=== PATIENT | male | born 1955 | race Caucasian/White ===

== ENCOUNTER 2017-01-22 22:42 | Inpatient (IN) | payer MEDICAID ==
[~2017-01-22] VITALS: Ht 167.6 cm; Wt 80.3 kg
[2017-01-22 23:09] VITALS: BP 150/111
--- NOTE | 2017-01-22 23:52 | NUR ---
BIB WHEELCHAIR TO ER BED 6
--- NOTE | 2017-01-22 23:57 | NUR ---
PT MOVED TO ER BED 6-PRE ER MD REQUEST
--- NOTE | 2017-01-23 | NUR ---
PATIENT IS A 61 Y/O MALE WHO PRESENTS TO THE ED C/O URINARY BURNING. PT STATES, "MY URINE HAS BEEN BURNING RECENTLY WHEN I TRY TO PEE." PT REPORTS 5/10 BURNING URINARY PAIN THAT DOES NOT RADIATE. PT DENIES CP, SOB, N/V/D. PT AAOX4, RR EVEN/UNLABORED. PT REPOSITIONED FOR COMFORT, BED IN LOWEST POSITION. ER MD HAGER SECIST NOTIFIED. WILL CONTINUE TO MONITOR.
[2017-01-23 00:03] LABS: APPEARANCE,URINE CLOUDY (CLEAR); BILIRUBIN,URINE NEGATIVE (NEGATIVE); BLOOD, URINE 3+ (NEGATIVE); COLOR,URINE YELLOW (YELLOW); LEUKOCYTE ESTERASE ,URINE 1+ (NEGATIVE); NITRITE, URINE POSITIVE (NEGATIVE); PH,URINE 5.5 (5.0-9.0); UGLUCOSE NEGATIVE (NEGATIVE)
[2017-01-23 00:05] LABS: MEAN CORPUSCULAR HEMOGLOBIN 29 pg (27-31)
[2017-01-23 00:08] LABS: HEMATOCRIT 44.3 % (36-52); MEAN CORPUSCULAR HGB CONC 34 g/dL (33-37); MEAN CORPUSCULAR VOLUME 84 fL (80-94); PLATELET COUNT (AUTO) 315 K/uL (140-450); RED BLOOD CELL COUNT(AUTO) 5.27 MIL/uL (4.20-6.10); RED CELL DISTRIBUTION WIDTH 13.8 % (11.6-13.7); WHITE BLOOD COUNT (AUTO) 25.5 K/uL (4.8-10.8)
[2017-01-23] MEDS ORDERED: NACL 0.9% 2,500 ML IV ONE (00:10)
[2017-01-23 00:14] LABS: RBC,URINE 11-20 (MOD) /HPF (0-5); WBC,URINE TOO MANY TO COUNT /HPF (0-5)
[2017-01-23 00:20] LABS: EOSINOPHILS % (MANUAL) 1 % (0-4); LYMPHOCYTES % (MANUAL) 9 % (20-46); MONOCYTES % (MANUAL) 3 % (5-12)
[2017-01-23 00:24] LABS: ALBUMIN 2.7 g/dL (3.4-5.0); ANION GAP 13.6 (8-16); CARBON DIOXIDE 26.5 mmol/L (21-32); POTASSIUM 4.1 mmol/L (3.5-5.1); TOTAL BILIRUBIN 1.6 mg/dL (0.0-1.0)
[2017-01-23] MEDS ORDERED: cefTRIAXone 1,000 MG VIAL ONE (01:05)
--- NOTE | 2017-01-23 01:27 | NUR ---
CALLED LAB ETA FOR BLOOD C&S 5MINS
[2017-01-23] MEDS ORDERED: HYDROcodone/APAP 7.5/325 MG 1 TAB PO PRN (02:45)
[2017-01-23] MEDS ORDERED: ONDANSETRON 4 MG/2 ML VIAL IVP PRN (02:45)
[2017-01-23] MEDS: ACETAMINOPHEN 325 MG TAB PO PRN ×3 (03:11→18:14)
[2017-01-23 03:30] VITALS: BP 97/50
--- NOTE | 2017-01-23 03:30 | NUR ---
Patient will be admitted to care of DR. NOWAK. Admited to TELE. Will go to room 105A. Belongings list completed. Report to CASPER LOPEZ.
--- NOTE | 2017-01-23 03:30 | NUR ---
RECEIVED PT FROM ER VIA [facility] SPEAKER AAOX4 AMBULATES WITH ASSKENYT ON IV ON RT AC NOT PATENT A NEW IV WILL STARTED; ON TELEMETRY SR PT HAS FEVER 102 TYLENOL WAS GIVEN IN ER COOL MEASURES APPLY PT IS ORIENTED TO THE FLOOR CALL LIGHT WITHIN REACH
[2017-01-23] MEDS: NACL 0.9% 1,000 ML IV SCH ×3 (03:45→15:27)
[2017-01-23 04:06] LABS: PROTHROMBIN TIME 13.4 secs (10.8-13.4)
[2017-01-23 04:15] LABS: BARBITURATE, URINE NEG. ng/ml (NEG <=200); BENZODIAZEPINE, URINE NEG. ng/mL (NEG <=200); CANNABINOID, URINE NEG. ng/mL (NEG <=50); COCAINE, URINE NEG. ng/mL (NEG <=300); OPIATE, URINE NEG. ng/mL (NEG <=2000); PHENCYCLIDINE SCREEN,URINE NEG. ng/mL (NEG <=25)
[2017-01-23 04:26] LABS: CHOL/HDL RATIO 10.4 (1-4.5); FREE T4 (FREE THYROXINE) 1.21 ng/dL (0.76-1.46); MAGNESIUM 1.7 mg/dL (1.8-2.4); PHOSPHORUS 2.4 mg/dL (2.5-4.9); THYROID STIMULATING HORMONE 2.43 uIU/mL (0.34-3.74)
[2017-01-23] MEDS ORDERED: DEXTROSE 50% 50 ML SYR IVP PRN (04:30)
[2017-01-23] MEDS: BLOOD GLUCOSE MONITORING 1 DEV DEV FS SCH ×4 (06:01→21:26)
[2017-01-23] MEDS: INSULIN LISPRO SLIDING SCALE 100 UNITS/ML VIAL SUBQ PRN ×3 (06:02→18:08)
--- NOTE | 2017-01-23 06:18 | NUR ---
PT VERY AAOX4 NOT FEVER TEMP 98.8 BLOOD SUGAR TEST 248 COVERAGE WITH 4 UNITS HUMALOG SUBQ ON RT ARM PROTOCOL
[2017-01-23 07:10] LABS: MEAN CORPUSCULAR HEMOGLOBIN 29 pg (27-31); MEAN CORPUSCULAR HGB CONC 34 g/dL (33-37); MEAN CORPUSCULAR VOLUME 85 fL (80-94); PLATELET COUNT (AUTO) 237 K/uL (140-450); RED BLOOD CELL COUNT(AUTO) 4.49 MIL/uL (4.20-6.10); RED CELL DISTRIBUTION WIDTH 13.2 % (11.6-13.7); WHITE BLOOD COUNT (AUTO) 22.2 K/uL (4.8-10.8)
--- NOTE | 2017-01-23 07:15 | NUR ---
RECEIVED PATIENT REPORT AT BEDSIDE. PATIENT AWAKE AND ALERT. PATIENT ON 2L O2. NO SOB. NO S/S OF DISTRESS NOTED. PATIENT DENIES PAIN. TEMP 99.4. IV LINE NOTED TO THE LEFT FOREARM WITH IVF INFUSING WELL. PATIENT ON TELE MONITORING. BED LOWERED WITH CALL LIGHT WITHIN REACH. WILL CONTINUE TO MONITOR
[2017-01-23 07:40] LABS: ANION GAP 12.9 (8-16); CARBON DIOXIDE 23.6 mmol/L (21-32); CREATININE 2.6 mg/dL (0.7-1.3); POTASSIUM 3.5 mmol/L (3.5-5.1)
[2017-01-23 08:00] VITALS: BP 121/72
[2017-01-23] MEDS ORDERED: NACL 0.9% 1,500 ML IV ONE (08:00)
[2017-01-23] MEDS ORDERED: MAG SULF 2000 MG/WATER PREMIX 50 ML IV SCH (08:02)
[2017-01-23] MEDS ORDERED: SODIUM PHOS / POTASSIUM PHOS 1 PKT PDR PO SCH (08:12)
[2017-01-23 08:13] LABS: BASOPHILS % (MANUAL) 0 % (0-2); EOSINOPHILS % (MANUAL) 0 % (0-4); LYMPHOCYTES % (MANUAL) 5 % (20-46); MONOCYTES % (MANUAL) 3 % (5-12)
[2017-01-23] MEDS: LACTOBACILLUS RHAMNOSUS GG 1 EACH CAP PO SCH ×3 (08:40→17:00)
[2017-01-23] MEDS: DOCUSATE SODIUM 100 MG GELCAP PO SCH ×2 (08:40→21:00)
[2017-01-23] MEDS: ATORVASTATIN 20 MG TAB PO SCH (08:41)
[2017-01-23] MEDS: PHENAZOPYRIDINE 100 MG TAB PO SCH (08:41)
[2017-01-23] MEDS ORDERED: INFLUENZA VIRUS VACCINE QUAD 0.5 ML SYR IMVAC SCH (09:00)
[2017-01-23] MEDS ORDERED: PHENAZOPYRIDINE 100 MG TAB PO SCH (09:00)
--- NOTE | 2017-01-23 09:11 | NUR ---
PATIENT CURRENTLY RECEIVING NS BOLUS. HR RANGING FROM 130-140. PATIENT DENIES PAIN. MADE DR LAGUERRE AWARE. WILL CONTINUE TO MONITOR
--- NOTE | 2017-01-23 09:55 | NUR ---
PATIENT HAS BEEN SCREENED AND CATEGORIZED HIGH NUTRITION RISK. PATIENT WILL BE SEEN WITHIN 1-2 DAYS OF ADMISSION. 01/23/17-01/24/[address]
--- NOTE | 2017-01-23 10:20 | NUR ---
PATIENT COMFORTABLY RESTING IN BED. NO S/S OF DISTRESS NOTED. NS BOLUS INFUSING
[2017-01-23 12:00] VITALS: BP 99/69
--- NOTE | 2017-01-23 12:00 | NUR ---
TEMP 101.6. PATIENT AWAKE AND ALERT. COOLING MEASURES PUT IN PLACE. PRN TYLENOL ADMINISTERED. WILL CONTINUE TO MONITOR
[2017-01-23] MEDS: SODIUM PHOS / POTASSIUM PHOS 1 PKT PDR PO SCH ×2 (12:20→16:45)
--- NOTE | 2017-01-23 12:53 | NUR ---
TEMP RECHECKED. TEMP 98.8 TAKEN ORALLY. NO S/S OF DISTRESS NOTED. FAMILY MEMBERS PRESENT AT BEDSIDE
[2017-01-23 16:00] VITALS: BP 102/67
--- NOTE | 2017-01-23 18:17 | NUR ---
PATIENT REPORTS BEING COLD. TEMP 101.0 TAKEN ORALLY. COOLING MEASURES IN PLACE. PRN TYLENOL ADMINISTERED. WILL CONTINUE TO MONITOR
--- NOTE | 2017-01-23 18:53 | NUR ---
TEMP RECHECKED. TEMP 103.[address] GALLARDO NOTIFIED. ORDERS RECEIVED
[2017-01-23] MEDS ORDERED: KETOROLAC 30 MG/ML VIAL IM PRN (18:55)
--- NOTE | 2017-01-23 19:26 | NUR ---
RECEIVED REPORT FROM AM NURSE. PT IS AAOX4. FAMILY AT THE BEDSIDE. ON TELE. NO SIGNS OF ACUTE DISTRESS NOTED. RESPIRATIONS EVEN AND UNLABORED. COOLING MEASURES IN PLACE. IV ACCESS INTACT, PATENT AND ASYMPTOMATIC. PLAN OF CARE DISCUSSED, PT VERBALIZED UNDERSTANDING. BED IN LOW POSITION, BILATERAL HALF SIDE RAILS UP, CALL LIGHT WITHIN REACH, WILL CONTINUE TO MONITOR.
--- NOTE | 2017-01-23 19:31 | NUR ---
PATIENT REPORT GIVEN AT BEDSIDE. PATIENT ENDORSED IN STABLE CONDITION
[2017-01-23 20:00] VITALS: BP 95/75
--- NOTE | 2017-01-23 21:20 | NUR ---
PT REFUSED COLACE, STATED HE HAS LOOSE STOOL. RISKS AND BENEFITS EXPLAINED, PT VERBALIZED UNDERSTANDING. PT REFUSED MEDICATION. WILL NOT ADMINISTER.
--- NOTE | 2017-01-23 23:01 | NUR ---
PT SLEEPING, AROUSABLE TO VOICE. NO SIGNS OF ACUTE DISTRESS NOTED, RESPIRATIONS EVEN AND UNLABORED. BED IN LOW POSITION, BILATERAL HALF SIDE RAILS UP, CALL LIGHT WITHIN REACH, WILL CONTINUE TO MONITOR.
[2017-01-24] VITALS: BP 88/60
--- NOTE | 2017-01-24 00:40 | NUR ---
DR GALLARDO VERIFIED REGARDING PT BLOOD PRESSURE OF 88/60. DR GALLARDO STATES IT IS FINE, NO NEW ORDERS NEEDED AT THIS TIME. WILL CONTINUE TO MONITOR.
[2017-01-24 04:00] VITALS: BP 112/66
[2017-01-24] MEDS: BLOOD GLUCOSE MONITORING 1 DEV DEV FS SCH ×4 (06:12→20:41)
[2017-01-24] MEDS: NACL 0.9% 1,000 ML IV SCH ×2 (06:44→15:25)
[2017-01-24 07:17] LABS: HEMATOCRIT 39.5 % (36-52); HEMOGLOBIN 13.4 g/dL (12.0-18.0); MEAN CORPUSCULAR HEMOGLOBIN 29 pg (27-31); MEAN CORPUSCULAR HGB CONC 34 g/dL (33-37); MEAN CORPUSCULAR VOLUME 86 fL (80-94); PLATELET COUNT (AUTO) 213 K/uL (140-450); RED BLOOD CELL COUNT(AUTO) 4.61 MIL/uL (4.20-6.10); RED CELL DISTRIBUTION WIDTH 14.2 % (11.6-13.7); WHITE BLOOD COUNT (AUTO) 17.3 K/uL (4.8-10.8)
[2017-01-24 07:20] LABS: ANION GAP 13.5 (8-16); CARBON DIOXIDE 26.4 mmol/L (21-32); CREATININE 2.4 mg/dL (0.7-1.3); POTASSIUM 3.9 mmol/L (3.5-5.1)
--- NOTE | 2017-01-24 07:32 | NUR ---
ENDORSED PT TO AM NURSE FOR CONTINUITY OF CARE. PT IS IN STABLE CONDITION.
--- NOTE | 2017-01-24 07:33 | NUR ---
RECEIVED REPORT FROM WORSTED WINDER NURSE, PT IS A/OX4, AMBULATORY, SKIN IS INTACT, IV IS ON THE LEFT FA, PATENT, INTACT, FLUSHING WELL, NO S/S OF RESPIRATORY DISTRESS OR DISCOMFORT NOTED, DISCUSSED PLAN OF CARE WITH PT, PT VERBALIZED UNDERSTANDING, SAFETY/FALL PRECAUTIONS ARE IN PLACE, CALL LIGHT IS WITHIN REACH, WILL CONTINUE TO MONITOR.
[2017-01-24 07:35] LABS: MAGNESIUM 2.4 mg/dL (1.8-2.4); PHOSPHORUS 3.7 mg/dL (2.5-4.9)
[2017-01-24 08:00] VITALS: BP 103/60
[2017-01-24 08:08] LABS: LYMPHOCYTES % (MANUAL) 7 % (20-46); MONOCYTES % (MANUAL) 5 % (5-12)
[2017-01-24] MEDS: ATORVASTATIN 20 MG TAB PO SCH (08:43)
[2017-01-24] MEDS: PHENAZOPYRIDINE 100 MG TAB PO SCH (08:43)
--- NOTE | 2017-01-24 08:43 | NUR ---
DUE MEDICATIONS GIVEN, PT TOLERATED WELL, FAMILY IS AT PATIENT'S BEDSIDE, CALL LIGHT IS WITHIN REACH.
[2017-01-24] MEDS: LACTOBACILLUS RHAMNOSUS GG 1 EACH CAP PO SCH ×3 (08:45→16:37)
[2017-01-24] MEDS: SODIUM PHOS / POTASSIUM PHOS 1 PKT PDR PO SCH ×2 (08:45→12:01)
[2017-01-24 12:00] VITALS: BP 94/59
[2017-01-24] MEDS: INSULIN LISPRO SLIDING SCALE 100 UNITS/ML VIAL SUBQ PRN ×2 (12:00→20:40)
--- NOTE | 2017-01-24 13:10 | NUR ---
PT IS SITTING UP IN BED EATING LUNCH. FAMILY IS AT PATIENT'S BEDSIDE.
--- NOTE | 2017-01-24 13:31 | NUR ---
01/24/17 RD INITIAL ASSESSMENT COMPLETED PLEASE REFER TO NUTRITION ASSESSMENT UNDER CARE ACTIVITY FOR ESTIMATED NUTRITIONAL NEEDS. 1. CONTINUE CCHO 60 GM DIET TOLERATED PER MD -DIET APPROPRIATE -PT MEETING >90% OF ESTIMATED NEEDS 2. RD TO FOLLOW-UP 5-7 DAYS, LOW RISK JONATHON DIAZ, BENEDICTO
--- NOTE | 2017-01-24 15:56 | NUR ---
PT IS RESTING IN BED, WATCHING TV, CALL LIGHT IS WITHIN REACH.
[2017-01-24 16:00] VITALS: BP 95/62
--- NOTE | 2017-01-24 19:20 | NUR ---
ENDORSED PT TO DIESEL LOCOMOTIVE FIRER NURSE FOR CONTINUITY OF CARE, PT STABLE AT THIS TIME.
--- NOTE | 2017-01-24 19:22 | NUR ---
RECEIVED PT AWAKE ON BED SPEAKING TO FAMILY MEMBERS AT BEDSIDE, AAOX4, ARMENIAN SPEAKING ONLY, VITAL SIGNS STABLE, TEMP-100.7, WILL GIVE TYLENOL PO, COOLING MEASURES STARTED, ON O2 AT 2L/NC, DENIES ANY PAIN, IVF INFUSING WELL, PLAN OF CARE DISCUSSED, CALL LIGHT WITHIN REACH.
[2017-01-24] MEDS: ACETAMINOPHEN 325 MG TAB PO PRN (19:58)
[2017-01-24 20:00] VITALS: BP 104/67
--- NOTE | 2017-01-24 20:20 | NUR ---
PT AMBULATED TO BR WITH STANDBY ASSIST AND VOIDED FREELY, PT WITH SLIGHT SOB AND TACHYPNEIC ON EXERTION, MAINTAIN ON O2 AT 2L AND HOB ELEVATED, BREATHING BETTER WHILE AT REST, MONITORED CLOSELY.
--- NOTE | 2017-01-24 21:40 | NUR ---
BLOOD SUGAR CHECKED WITH 166 RESULT, COVERAGE GIVEN, SNACK PROVIDED, ALL NEEDS ATTENDED.
[2017-01-25] VITALS: BP 93/56
--- NOTE | 2017-01-25 | NUR ---
PT SLEEPING, EASILY AROUSABLE, VITAL SIGNS STABLE, AFEBRILE, NO SOB NOTED, CONTINUE TO MONITOR CLOSELY.
[2017-01-25] MEDS: NACL 0.9% 1,000 ML IV SCH ×3 (00:11→19:08)
[2017-01-25 04:00] VITALS: BP 98/63
[2017-01-25] MEDS: ACETAMINOPHEN 325 MG TAB PO PRN (04:47)
--- NOTE | 2017-01-25 04:50 | NUR ---
RECHECKED TEMP-100.6, TYLENOL PO GIVEN, MONITORED CLOSELY.
--- NOTE | 2017-01-25 05:40 | NUR ---
AM LABS DRAWN, BLOOD SUGAR CHECKED WITH 127 RESULT, NO COVERAGE NEEDED, TEMP-98.9, NO DISTRESS NOTED, IVF INFUSING WELL.
[2017-01-25] MEDS: BLOOD GLUCOSE MONITORING 1 DEV DEV FS SCH ×4 (06:39→21:24)
--- NOTE | 2017-01-25 07:10 | NUR ---
PT SEEN SITTING ON SIDE OF BED, NO DISTRESS NOTED, REPORT GIVEN TO JOHN GUTIERREZ FOR CONTINUITY OF CARE.
--- NOTE | 2017-01-25 07:11 | NUR ---
RECEIVED REPORT FROM NIGHT RN, PT SITTING ON SIDE OF BED ON 2L OF O2, PT DENIES PAIN OR SHORTNESS OF BREATH, PT DENIES ANY PAIN, A/OX4, PLAN OF CARE DISCUSSED WITH PT, PT VERBALIZED UNDERSTANDING, SAFETY PRECAUTIONS TAKEN, CALL LIGHT WITHIN REACH, IV PATENT AND INTACT, WILL CONT TO MONITOR.
[2017-01-25 07:33] VITALS: BP 96/67
[2017-01-25 07:35] LABS: BASOPHILS # (AUTO) 0.1 K/uL (0.00-0.22); BASOPHILS % (AUTO) 0.7 % (0.0-2.0); EOSINOPHILS # (AUTO) 0.1 K/uL (0-0.4); EOSINOPHILS % (AUTO) 0.5 % (0.0-4.0); HEMATOCRIT 34.2 % (36-52); HEMOGLOBIN 11.5 g/dL (12.0-18.0); LYMPHOCYTES # (AUTO) 0.6 K/uL (2.0-11.5); LYMPHOCYTES % (AUTO) 5.3 % (20.5-51.1); MEAN CORPUSCULAR HEMOGLOBIN 29 pg (27-31); MEAN CORPUSCULAR HGB CONC 34 g/dL (33-37); MEAN CORPUSCULAR VOLUME 86 fL (80-94); MONOCYTES # (AUTO) 0.5 K/uL (0.8-1.0); MONOCYTES % (AUTO) 4.4 % (1.7-9.3); NEUTROPHILS # (AUTO) 10.8 K/uL (1.8-7.7); NEUTROPHILS % (AUTO) 89.1 % (42.2-75.2); PLATELET COUNT (AUTO) 162 K/uL (140-450); RED BLOOD CELL COUNT(AUTO) 3.98 MIL/uL (4.20-6.10); RED CELL DISTRIBUTION WIDTH 13.9 % (11.6-13.7); WHITE BLOOD COUNT (AUTO) 12.1 K/uL (4.8-10.8)
[2017-01-25] MEDS: PHENAZOPYRIDINE 100 MG TAB PO SCH (08:16)
[2017-01-25] MEDS: ATORVASTATIN 20 MG TAB PO SCH (08:16)
[2017-01-25] MEDS: LACTOBACILLUS RHAMNOSUS GG 1 EACH CAP PO SCH ×3 (08:16→16:18)
--- NOTE | 2017-01-25 08:18 | NUR ---
DUE MEDICATIONS GIVEN WITH EDUCATION, PT VERBALZIED UNDERSTANDING, PT TOLERATED MEDS WELL, WILL CONT TO MONITOR.
[2017-01-25 08:37] LABS: ANION GAP 11.8 (8-16); CARBON DIOXIDE 23.1 mmol/L (21-32); POTASSIUM 3.9 mmol/L (3.5-5.1)
[2017-01-25] MEDS ORDERED: ATOR20TA PO (11:04)
[2017-01-25] MEDS ORDERED: METF500T PO (11:04)
[2017-01-25] MEDS ORDERED: CIPR500T4 PO (11:04)
[2017-01-25] MEDS ORDERED: LACT1.4C PO (11:04)
[2017-01-25] MEDS ORDERED: PHEN-1749 PO (11:04)
[2017-01-25] MEDS ORDERED: GLIP5TAB4 PO (11:16)
[2017-01-25] MEDS: INSULIN LISPRO SLIDING SCALE 100 UNITS/ML VIAL SUBQ PRN ×2 (11:26→17:09)
[2017-01-25 11:50] VITALS: BP 105/62
--- NOTE | 2017-01-25 12:48 | NUR ---
PT AWAKE IN BED ON RA, FAMILY AT BEDSIDE, PT EATING LUNCH AT THE TIME, PT DENIES PAIN, NO S/S OF ACUTE DISTRESS, CALL LIGHT WITHIN REACH, WILL CONT TO MONITOR.
--- NOTE | 2017-01-25 13:15 | NUR ---
RECEIVED CRITICAL LAB MDRO AND ESBL OF THE URINE AND BLOOD NOTIFIED DR LAGUERRE (RESIDENT) WILL CARRY OUT ORDERERS
--- NOTE | 2017-01-25 14:37 | NUR ---
ENDORSE THE CARE TO JOSHUA LOPEZ
--- NOTE | 2017-01-25 14:38 | NUR ---
RECEIVED REPORT FROM JOHN ROGERS. PT IS TO BE MOVED TO ROOM 116 D/T CONTACT ISO. HE IS + MDRO AND ESBL OF URINE AND BLOOD. PT IS FRENCH SPEAKING. AOX4. AMBULATORY. IV ON L FA 22G. IV PUMP IS BEEPING. WILL FIX.
--- NOTE | 2017-01-25 15:00 | NUR ---
MOVED PT TO ROOM 116. IV IS INFILTRATED. NEED TO RESTART IV. STARTED ON L HAND 22G. ONE ATTEMPT. PT TOLERATED WELL. PT IS RESTING COMFORTABLY. NO DISTRESS. NO COMPLAINTS. WILL CONTINUE TO MONITOR PT. CONTACT ISO SIGN UP, FALL RISK SIGN UP.
[2017-01-25 16:00] VITALS: BP 112/45
[2017-01-25 20:00] VITALS: BP 112/63
[2017-01-25] MEDS ORDERED: MEROPENEM 1,000 MG in NACL 0.9% 100 ML IV SCH (21:00)
[2017-01-25] MEDS: MEROPENEM 1,000 MG VIAL IV SCH (21:25)
--- NOTE | 2017-01-25 22:36 | NUR ---
ENDORSED PT TO THE CHARGE INSTRUMENT AND CONTROL SERVICE PERSON NURSE AT BEDSIDE FOR CONTINUITY OF CARE. PT IS IN STABLE CONDITION.
[2017-01-26] VITALS: BP 109/67
--- NOTE | 2017-01-26 | NUR ---
AWAKE SITTING AT THE SIDE OF THE BED, NO COMPLAINTS. INSTRUCTED TO CALL IF NEEDED ASSISTANCE.
--- NOTE | 2017-01-26 01:07 | NUR ---
RECEIVED REPORT FROM JOHN DIAZ. PT SLEEPING IN BED. NO S/S OF ACUTE DISTRESS. IV SITE PATENT AND INTACT. CALL LIGHT WITHIN REACH. SAFETY MEASURES ENSURED. WILL CONTINUE TO MONITOR.
[2017-01-26 04:00] VITALS: BP 111/69
--- NOTE | 2017-01-26 04:16 | NUR ---
PT SLEEPING IN BED. NO S/S OF ACUTE DISTRESS. WILL CONTINUE TO MONITOR.
[2017-01-26] MEDS: NACL 0.9% 1,000 ML IV SCH (04:35)
[2017-01-26] MEDS: BLOOD GLUCOSE MONITORING 1 DEV DEV FS SCH ×4 (06:24→21:16)
--- NOTE | 2017-01-26 07:27 | NUR ---
PT SLEEPING IN BED. NO S/S OF ACUTE DISTRESS. AAOX4. PT DENIES PAIN. IV SITE PATENT AND INTACT. CALL LIGHT WITHIN REACH. SAFETY MEASURES ENSURED. WILL CONTINUE TO MONITOR.
[2017-01-26 08:00] VITALS: BP 90/52
[2017-01-26 08:01] LABS: HEMATOCRIT 32.7 % (36-52); HEMOGLOBIN 11.2 g/dL (12.0-18.0); MEAN CORPUSCULAR HEMOGLOBIN 29 pg (27-31); MEAN CORPUSCULAR HGB CONC 34 g/dL (33-37); MEAN CORPUSCULAR VOLUME 85 fL (80-94); PLATELET COUNT (AUTO) 174 K/uL (140-450); RED BLOOD CELL COUNT(AUTO) 3.85 MIL/uL (4.20-6.10); RED CELL DISTRIBUTION WIDTH 13.7 % (11.6-13.7); WHITE BLOOD COUNT (AUTO) 10.9 K/uL (4.8-10.8)
[2017-01-26 08:08] LABS: ANION GAP 11.9 (8-16); CARBON DIOXIDE 24.7 mmol/L (21-32); CREATININE 1.8 mg/dL (0.7-1.3); POTASSIUM 3.6 mmol/L (3.5-5.1)
[2017-01-26] MEDS: LACTOBACILLUS RHAMNOSUS GG 1 EACH CAP PO SCH ×3 (08:14→18:44)
[2017-01-26] MEDS: ATORVASTATIN 20 MG TAB PO SCH (08:14)
--- NOTE | 2017-01-26 08:14 | NUR ---
AM MEDICATIONS GIVEN WITH EDUCATION. PT VERBALIZED UNDERSTANDING. FAMILY AT BEDSIDE. WILL CONTINUE TO MONITOR.
[2017-01-26] MEDS: MEROPENEM 1,000 MG VIAL IV SCH (08:17)
[2017-01-26] MEDS: glipiZIDE 5 MG TAB PO SCH ×2 (08:21→16:30)
[2017-01-26 08:27] LABS: PHOSPHORUS 2.7 mg/dL (2.5-4.9)
[2017-01-26] MEDS ORDERED: ZOLPIDEM 5 MG TAB PO PRN (08:40)
[2017-01-26] MEDS ORDERED: TAMSULOSIN 0.4 MG CAP PO SCH (08:43)
[2017-01-26 09:38] LABS: LYMPHOCYTES % (MANUAL) 10 % (20-46); MONOCYTES % (MANUAL) 3 % (5-12)
--- NOTE | 2017-01-26 10:03 | NUR ---
ENDORSED PLAN OF CARE TO JOHN ROGERS. PT STABLE.
--- NOTE | 2017-01-26 10:57 | NUR ---
RECEIVED PATIENT REPORT AT BEDSIDE. PATIENT AWAKE AND ALERT. NO S/S OF DISTRESS NOTED. DENIES PAIN OR DISCOMFORT. WILL CONTINUE TO MONITOR
[2017-01-26 12:00] VITALS: BP 116/76
--- NOTE | 2017-01-26 12:30 | NUR ---
RECEIVED PATIENT REPORT AT BEDSIDE FROM NORMA LOPEZ. PATIENT AWAKE AND ALERT. NO S/S OF DISTRESS NOTED. DENIES PAIN OR DISCOMFORT. WILL CONTINUE TO MONITOR
[2017-01-26 16:00] VITALS: BP 111/66
--- NOTE | 2017-01-26 16:30 | NUR ---
RECEIVED PATIENT REPORT FROM NORMA LOPEZ. PATIENT AWAKE AND ALERT. NO S/S OF DISTRESS NOTED. DENIES PAIN OR DISCOMFORT. WILL CONTINUE TO MONITOR Addendum: 01/26/17 at 2002 by Sunday Archibald RN PLEASE DISREGARD, WRONG PATIENT.
--- NOTE | 2017-01-26 16:30 | NUR ---
PT BLOOD GLUCOSE WAS 72. GIVEN PT ONE APPLE JUICE.
--- NOTE | 2017-01-26 17:00 | NUR ---
RECHECKED PT BLOOD GLUCOSE, WAS 92.
--- NOTE | 2017-01-26 18:00 | NUR ---
PT HAS ABD DRESSING ON THE LOWER ABD. DRESSING INTACT, CLEAN AND DRY. Addendum: 01/26/17 at 2002 by Sunday Archibald RN PLEASE DISREGARD, WRONG PATIENT.
--- NOTE | 2017-01-26 19:30 | NUR ---
ENDORSED PT TO WOOD CLUB NECK WHIPPER RN. PT IS IN STABLE CONDITION.
--- NOTE | 2017-01-26 19:30 | NUR ---
ENDORSED PT TO NIGHT RN. PT IS IN STABLE CONDITION. PT C/O PAIN 07/24 AND WANTS SOMETHING FOR SLEEPING. NIGHT RN IS AWARE. Addendum: 01/26/17 at 2002 by Sunday Archibald RN PLEASE DISREGARD, WRONG PATIENT.
--- NOTE | 2017-01-26 19:31 | NUR ---
RECEIVED REPORT FROM AM NURSE. PT RESTING IN BED, AOX4, AMBULATORY, ABLE TO VERBALIZE NEEDS. PT DENIES PAIN, SOB OR S/S OF ACUTE DISTRESS. PT DENIES PAIN WHILE URINATING, PT REPORTS FREQUENT URINATIONS. SKEIN BANDER IN PLACE. IV ACCESS ASYMPTOMATIC, PATENT AND INTACT. SALINE LOCKED. DISCUSSED AND REVIEWED PLAN OF CARE WITH PT. PT VERBALIZED UNDERSTANDING. ALL NEEDS MET. SAFETY MEASURES ENSURED. CALL LIGHT WITHIN REACH. WILL CONTINUE TO MONITOR.
[2017-01-26 20:00] VITALS: BP 107/61
[2017-01-26] MEDS: MEROPENEM 1,000 MG in NACL 0.9% 100 ML IV SCH (21:10)
--- NOTE | 2017-01-26 21:17 | NUR ---
BLOOD GLUCOSE 84, NO INSULIN COVERAGE NEEDED, PROVIDED PT WITH EVENING SNACK. ADMINISTERED DUE MED MERREM IVPB WITH EDUCATION. PT VERBALIZED UNDERSTANDING, TOLERATED MED WELL. ALL NEEDS MET. SAFETY MEASURES ENSURED. CALL LIGHT WITHIN REACH. WILL CONTINUE TO MONITOR.
[2017-01-27] VITALS: BP 102/65
[2017-01-27] MEDS: ACETAMINOPHEN 325 MG TAB PO PRN (00:14)
--- NOTE | 2017-01-27 00:15 | NUR ---
TEMP 100.7, COOLING MEASURE MAINTAINED, ADMINISTERED TYLENOL PRN PO FOR FEVER, WILL MONITOR. SPO2 93% ON ROOM AIR, RR 24 EVEN AND UNLABORED AT BASELINE, PT DENIES SOB, REFUSED O2 NC AT THIS TIME. PT INSTRUCTED TO USE CALL LIGHT WHEN FEELING SOB. ALL NEEDS MET. SAFETY MEASURES ENSURED. CALL LIGHT WITHIN REACH. WILL CONTINUE TO MONITOR.
--- NOTE | 2017-01-27 02:00 | NUR ---
PT SLEEPING COMFORTABLY, AROUSABLE TO NAME. TEMP 99.6, COOLING MEASURE MAINTAINED, WILL CONTINUE TO MONITOR. ALL NEEDS MET. SAFETY MEASURES ENSURED. CALL LIGHT WITHIN REACH. WILL CONTINUE TO MONITOR.
--- NOTE | 2017-01-27 03:50 | NUR ---
PT SLEEPING COMFORTABLY, AROUSABLE TO NAME. NO S/S OF ACUTE DISTRESS. ALL NEEDS MET. SAFETY MEASURES ENSURED. CALL LIGHT WITHIN REACH. WILL CONTINUE TO MONITOR.
[2017-01-27 04:00] VITALS: BP 111/71
[2017-01-27] MEDS: glipiZIDE 5 MG TAB PO SCH ×2 (06:33→16:30)
[2017-01-27] MEDS: BLOOD GLUCOSE MONITORING 1 DEV DEV FS SCH ×4 (06:34→20:46)
--- NOTE | 2017-01-27 06:35 | NUR ---
BLOOD GLUCOSE 87, NO INSULIN COVERAGE NEEDED. SNACKS GIVEN. ADMINISTERED DUE MED GLIPIZIDE PO WITH EDUCATION. PT VERBALIZED UNDERSTANDING, TOLERATED MED WELL. ALL NEEDS MET. SAFETY MEASURES ENSURED. CALL LIGHT WITHIN REACH. WILL CONTINUE TO MONITOR.
--- NOTE | 2017-01-27 07:15 | NUR ---
RECEIVED BEDSIDE REPORT FROM DRESSMAKING TEACHER NURSE. PT SLEEPING IN BED. NO S/S OF ACUTE DISTRESS. IV NOTED TO THE LEFT FA G22, PATENT AND INTACT. CALL LIGHT WITHIN REACH. SAFETY MEASURES ENSURED. WILL CONTINUE TO MONITOR.
--- NOTE | 2017-01-27 07:15 | NUR ---
ENDORSED PLAN OF CARE TO AM NURSE. CONDITION STABLE.
[2017-01-27 07:32] LABS: ANION GAP 9.6 (8-16); CARBON DIOXIDE 28.7 mmol/L (21-32); CREATININE 1.7 mg/dL (0.7-1.3); POTASSIUM 4.3 mmol/L (3.5-5.1)
[2017-01-27 08:00] VITALS: BP 106/78
[2017-01-27 08:02] LABS: BASOPHILS # (AUTO) 0.1 K/uL (0.00-0.22); BASOPHILS % (AUTO) 0.5 % (0.0-2.0); EOSINOPHILS # (AUTO) 0.1 K/uL (0-0.4); EOSINOPHILS % (AUTO) 1.4 % (0.0-4.0); HEMATOCRIT 35.8 % (36-52); HEMOGLOBIN 12.2 g/dL (12.0-18.0); LYMPHOCYTES # (AUTO) 1.2 K/uL (2.0-11.5); MEAN CORPUSCULAR HEMOGLOBIN 29 pg (27-31); MEAN CORPUSCULAR HGB CONC 34 g/dL (33-37); MEAN CORPUSCULAR VOLUME 85 fL (80-94); MONOCYTES # (AUTO) 0.6 K/uL (0.8-1.0); MONOCYTES % (AUTO) 6.1 % (1.7-9.3); NEUTROPHILS # (AUTO) 8.6 K/uL (1.8-7.7); PLATELET COUNT (AUTO) 229 K/uL (140-450); RED CELL DISTRIBUTION WIDTH 13.3 % (11.6-13.7); WHITE BLOOD COUNT (AUTO) 10.6 K/uL (4.8-10.8)
[2017-01-27] MEDS: LACTOBACILLUS RHAMNOSUS GG 1 EACH CAP PO SCH ×2 (09:46→12:08)
[2017-01-27] MEDS: ATORVASTATIN 20 MG TAB PO SCH (09:46)
[2017-01-27] MEDS: TAMSULOSIN 0.4 MG CAP PO SCH (09:46)
[2017-01-27] MEDS: MEROPENEM 1,000 MG in NACL 0.9% 100 ML IV SCH ×2 (09:47→20:46)
[2017-01-27 12:00] VITALS: BP 111/71
--- NOTE | 2017-01-27 12:00 | NUR ---
PT'S SITTING AT THE THE EDGE OF BED, EATING LUNCH. DENIES PAIN, NO ACUTE S/S OF DISTRESS. BLOOD GLUCOSE 105, WILL CONTINUE TO MONITOR.
[2017-01-27 16:00] VITALS: BP 107/65
--- NOTE | 2017-01-27 16:30 | NUR ---
PT GLUCOSE 72. ONE APPLE JUICE GIVEN. PT DENIES DIZZINESS.
--- NOTE | 2017-01-27 19:30 | NUR ---
ENDORSED PT TO SETTER MOLDING AND COREMAKING MACHINES. PT IN STABLE CONDITION.
--- NOTE | 2017-01-27 19:31 | NUR ---
RECEIVED REPORT FROM AM NURSE. PT FAMILY AT BEDSIDE. PT RESTING IN BED, AOX4, AMBULATORY, ABLE TO VERBALIZE NEEDS. PT DENIES PAIN, SOB OR S/S OF ACUTE DISTRESS. PT DENIES PAIN WHILE URINATING, PT REPORTS FREQUENT URINATIONS. POWDER CARRIER IN PLACE. IV ACCESS ASYMPTOMATIC, PATENT AND INTACT. SALINE LOCKED. DISCUSSED AND REVIEWED PLAN OF CARE WITH PT. PT VERBALIZED UNDERSTANDING. ALL NEEDS MET. SAFETY MEASURES ENSURED. CALL LIGHT WITHIN REACH. WILL CONTINUE TO MONITOR.
[2017-01-27 20:00] VITALS: BP 101/67
--- NOTE | 2017-01-27 20:49 | NUR ---
BLOOD GLUCOSE 101, NO INSULIN COVERAGE NEEDED, EVENING SNACK PROVIDED. ADMINISTERED DUE MED MERREM IVPB WITH EDUCATION ORDERED. PT VERBALIZED UNDERSTANDING. ALL NEEDS MET. IVPB INFUSING WELL. SAFETY MEASURES ENSURED. CALL LIGHT WITHIN REACH. WILL CONTINUE TO MONITOR.
[2017-01-28] VITALS: BP 96/61
--- NOTE | 2017-01-28 00:15 | NUR ---
PT SLEEPING COMFORTABLY, AROUSABLE TO NAME. BP 96/61, HR 97. PT DENIES DIZZINESS, LIGHTHEADEDNESS, NO S/S OF ACUTE DISTRESS. ALL NEEDS MET. SAFETY MEASURES ENSURED. CALL LIGHT WITHIN REACH. WILL CONTINUE TO MONITOR.
[2017-01-28 04:00] VITALS: BP 100/64
--- NOTE | 2017-01-28 04:00 | NUR ---
PT RESTING COMFORTABLY, NO S/S OF ACUTE DISTRESS. ALL NEEDS MET. SAFETY MEASURES ENSURED. CALL LIGHT WITHIN REACH. WILL CONTINUE TO MONITOR.
[2017-01-28] MEDS: glipiZIDE 5 MG TAB PO SCH ×2 (06:31→17:50)
[2017-01-28] MEDS: BLOOD GLUCOSE MONITORING 1 DEV DEV FS SCH ×4 (06:32→20:20)
--- NOTE | 2017-01-28 07:15 | NUR ---
ENDORSED PLAN OF CARE TO AM NURSE. CONDITION STABLE.
--- NOTE | 2017-01-28 07:25 | NUR ---
RECEIVED BEDSIDE REPORT FROM CHAIN PULLER NURSE. PT SLEEPING IN BED. NO S/S OF ACUTE DISTRESS. IV NOTED TO THE LEFT FA G22, PATENT AND INTACT. CALL LIGHT WITHIN REACH. SAFETY MEASURES ENSURED. WILL CONTINUE TO MONITOR.
[2017-01-28 08:01] VITALS: BP 95/57
[2017-01-28] MEDS: ATORVASTATIN 20 MG TAB PO SCH (08:50)
[2017-01-28] MEDS: TAMSULOSIN 0.4 MG CAP PO SCH (08:50)
[2017-01-28] MEDS: LACTOBACILLUS RHAMNOSUS GG 1 EACH CAP PO SCH (08:50)
[2017-01-28] MEDS: MEROPENEM 1,000 MG in NACL 0.9% 100 ML IV SCH ×2 (08:51→20:42)
[2017-01-28 12:00] VITALS: BP 92/60
[2017-01-28] MEDS: INSULIN LISPRO SLIDING SCALE 100 UNITS/ML VIAL SUBQ PRN ×2 (12:54→17:57)
--- NOTE | 2017-01-28 15:00 | NUR ---
PT WANTS SHOWER TOMORROW. EXPLAINED TO PT THE PROCESS OF SALINE LOCKED AND WRAPPING IV IN GLOVE OR PLASTIC BAG. PT VERBALIZED UNDERSTANDING.
--- NOTE | 2017-01-28 19:25 | NUR ---
RECEIVED REPORT FROM DAY RN, PATIENT RESTING IN BED, AWAKE ALERT ORIENTED X4, NO S/S OF DISTRESS NOTED, RESPIRATION EVEN AND UNLABORED, DENIES PAIN AT THIS TIME. PLAN OF CARE DISCUSSED, PATIENT VERBALIZED UNDERSTANDING, CALL LIGHT WITHIN REACH, SAFETY MEASURE ENSURED, WILL CONTINUE TO MONITOR.
--- NOTE | 2017-01-28 19:30 | NUR ---
ENDORSED PT TO ACID CHANGER RN. PT RESTING IN BED, FAMILY MEMBER AT BEDSIDE. PT IN STABLE CONDITION.
--- NOTE | 2017-01-28 20:05 | NUR ---
T 98.8 HR 97, BP 96/64, RR 19, O2SAT 91%, NO S/S OF DISTRESS NOTED, WILL CONTINUE TO MONITOR.
--- NOTE | 2017-01-28 20:45 | NUR ---
DUE MEDICATION GIVEN, PATIENT TOLERATED WELL. NO S/S OF DISTRESS NOTED, WELL CONTINUE TO MONITOR.
[2017-01-29] VITALS: BP 85/47
--- NOTE | 2017-01-29 00:16 | NUR ---
BP 85/47, ASYMPTOMATIC, DENIES DIZZINESS, OR DISCOMFORT, MADE DR. GALLARDO AWARE, NO NEW ORDER RECEIVED AT THIS TIME. WILL CONTINUE TO MONITOR.
--- NOTE | 2017-01-29 02:36 | NUR ---
PATIENT IS SLEEPING AT THIS TIME, RESPIRATION EVEN AND UNLABORED, CALL LIGHT WITHIN REACH, SAFETY MEASURE ENSURED, WILL CONTINUE TO MONITOR.
--- NOTE | 2017-01-29 04:29 | NUR ---
NO CHANGE IN CONDITION, PATIENT IS SLEEPING AT THIS TIME, RESPIRATION EVEN AND UNLABORED, CALL LIGHT WITHIN REACH, SAFETY MEASURE ENSURED, WILL CONTINUE TO MONITOR.
--- NOTE | 2017-01-29 06:25 | NUR ---
PATIENT IS SLEEPING, EASY TO AROUSE, NO S/S OF DISTRESS NOTED, RESPIRATION EVEN AND UNLABORED, CALL LIGHT WITHIN REACH, SAFETY MEASURE ENSURED, WILL CONTINUE TO MONITOR.
[2017-01-29] MEDS: BLOOD GLUCOSE MONITORING 1 DEV DEV FS SCH ×4 (06:32→20:53)
[2017-01-29] MEDS: glipiZIDE 5 MG TAB PO SCH ×2 (06:38→16:53)
[2017-01-29 07:13] LABS: BASOPHILS # (AUTO) 0.2 K/uL (0.00-0.22); BASOPHILS % (AUTO) 1.9 % (0.0-2.0); EOSINOPHILS # (AUTO) 0.2 K/uL (0-0.4); EOSINOPHILS % (AUTO) 2.5 % (0.0-4.0); HEMATOCRIT 34.5 % (36-52); HEMOGLOBIN 11.5 g/dL (12.0-18.0); LYMPHOCYTES # (AUTO) 1.9 K/uL (2.0-11.5); LYMPHOCYTES % (AUTO) 20.3 % (20.5-51.1); MEAN CORPUSCULAR HEMOGLOBIN 28 pg (27-31); MEAN CORPUSCULAR HGB CONC 33 g/dL (33-37); MEAN CORPUSCULAR VOLUME 85 fL (80-94); MONOCYTES # (AUTO) 0.8 K/uL (0.8-1.0); NEUTROPHILS # (AUTO) 6.4 K/uL (1.8-7.7); NEUTROPHILS % (AUTO) 67.3 % (42.2-75.2); PLATELET COUNT (AUTO) 467 K/uL (140-450); RED BLOOD CELL COUNT(AUTO) 4.07 MIL/uL (4.20-6.10); RED CELL DISTRIBUTION WIDTH 13.2 % (11.6-13.7); WHITE BLOOD COUNT (AUTO) 9.5 K/uL (4.8-10.8)
[2017-01-29 07:21] LABS: ANION GAP 12.3 (8-16); CARBON DIOXIDE 26.7 mmol/L (21-32); CREATININE 1.4 mg/dL (0.7-1.3)
--- NOTE | 2017-01-29 07:25 | NUR ---
ENDORSED PLAN OF CARE TO DAY RN, PATIENT IS STABLE AND EATING BREAKFAST, NO S/S OF DISTRESS NOTED.
[2017-01-29 07:59] LABS: MAGNESIUM 2.1 mg/dL (1.8-2.4); PHOSPHORUS 3.9 mg/dL (2.5-4.9)
[2017-01-29 08:00] VITALS: BP 101/61
[2017-01-29] MEDS: TAMSULOSIN 0.4 MG CAP PO SCH (08:34)
[2017-01-29] MEDS: MEROPENEM 1,000 MG in NACL 0.9% 100 ML IV SCH ×2 (08:34→20:57)
[2017-01-29] MEDS: ATORVASTATIN 20 MG TAB PO SCH (08:35)
[2017-01-29] MEDS: LACTOBACILLUS RHAMNOSUS GG 1 EACH CAP PO SCH (08:36)
--- NOTE | 2017-01-29 08:42 | NUR ---
ADMINISTERED MORNING MEDS W/ ABX. PT TOLERATED WELL.
--- NOTE | 2017-01-29 11:00 | NUR ---
FAMILY CAME TO VISIT. EDUCATED FAMILY ABOUT CONTACT ISOLATION AND PRECAUTIONS. FAMILY VERBALIZED UNDERSTANDING.
[2017-01-29] MEDS: INSULIN LISPRO SLIDING SCALE 100 UNITS/ML VIAL SUBQ PRN ×3 (12:40→20:53)
--- NOTE | 2017-01-29 14:58 | NUR ---
PT SLEEPING SOUNDLY. NO SIGNS OF DISTRESS NOTED. WILL CONTINUE TO MONITOR PT.
[2017-01-29 16:00] VITALS: BP 86/50
--- NOTE | 2017-01-29 18:55 | NUR ---
PATIENT COMPLAINED OF GOUT PAIN IN FOOT, REQUESTED PAIN MEDS, ADMINISTERED NORCO REQUESTED. PATIENT TOLERATED WELL. REQUESTED FAMILY TO BRING IN MEDICINE FOR GOUT. FAMILY VERBALIZED UNDERSTANDING. WILL CONTINUE TO MONITOR PATIENT'S CONDITION.
--- NOTE | 2017-01-29 19:23 | NUR ---
ENDORSED CARE TO NUCLEAR PLANT INSTRUMENT TECHNICIAN RN AT BEDSIDE FOR CONTINUITY OF CARE. PATIENT IN STABLE CONDITION.
--- NOTE | 2017-01-29 19:35 | NUR ---
RECEIVED REPORT FROM DAY RN, PATIENT RESTING IN BED, AWAKE ALERT ORIENTED X4, NO S/S OF DISTRESS NOTED, RESPIRATION EVEN AND UNLABORED, DENIES PAIN AT THIS TIME, IV PATENT AND INTACT. PLAN OF CARE DISCUSSED, PATIENT VERBALIZED UNDERSTANDING. CALL LIGHT WITHIN REACH, SAFETY MEASURE ENSURED, WILL CONTINUE TO MONITOR.
--- NOTE | 2017-01-29 21:03 | NUR ---
DUE MEDICATION GIVEN, PATIENT TOLERATED WELL. NO S/S OF DISTRESS NOTED, WILL CONTINUE TO MONITOR.
--- NOTE | 2017-01-29 22:23 | NUR ---
PATIENT IS SLEEPING AT THIS TIME. NO S/S OF DISTRESS NOTED, RESPIRATION EVEN AND UNLABORED, CALL LIGHT WITHIN REACH, SAFETY MEASURE ENSURED, WILL CONTINUE TO MONITOR.
[2017-01-30] VITALS: BP 91/52
--- NOTE | 2017-01-30 00:05 | NUR ---
VITAL SIGNS STABLE, NO CHANGE IN CONDITION, RESPIRATION EVEN AND UNLABORED, CALL LIGHT WITHIN REACH, SAFETY MEASURE ENSURED, WILL CONTINUE TO MONITOR.
--- NOTE | 2017-01-30 02:16 | NUR ---
NO CHANGE IN CONDITION, PATIENT IS SLEEPING AT THIS TIME, RESPIRATION EVEN AND UNLABORED, CALL LIGHT WITHIN REACH, SAFETY MEASURE ENSURED, WILL CONTINUE TO MONITOR.
--- NOTE | 2017-01-30 04:21 | NUR ---
PATIENT IS SLEEPING AT THIS TIME, RESPIRATION EVEN AND UNLABORED, CALL LIGHT WITHIN REACH, SAFETY MEASURE ENSURED, WILL CONTINUE TO MONITOR.
[2017-01-30] MEDS: BLOOD GLUCOSE MONITORING 1 DEV DEV FS SCH ×5 (06:38→20:33)
[2017-01-30] MEDS: glipiZIDE 5 MG TAB PO SCH ×2 (06:50→17:00)
--- NOTE | 2017-01-30 07:15 | NUR ---
ENDORSED PLAN OF CARE TO DAY SHIFT NURSE. PATIENT IS IN STABLE CONDITION. NO S/S OF DISTRESS NOTED.
--- NOTE | 2017-01-30 07:16 | NUR ---
RECEIVED BEDSIDE REPORT FROM VP CARDIOVASCULAR SERVICE LINE NURSE AT BEDSIDE FOR CONTINUITY OF CARE. PT AWAKE, ORIENTED X4, AND IN BED. NO S/S OF ACUTE DISTRESS. PT DENIES PAIN. IV NOTED TO THE LEFT FA G22 SALINE LOCK, PATENT AND INTACT. CALL LIGHT WITHIN REACH. SAFETY MEASURES ENSURED. WILL CONTINUE TO MONITOR.
[2017-01-30 07:46] LABS: BASOPHILS # (AUTO) 0.2 K/uL (0.00-0.22); BASOPHILS % (AUTO) 2.3 % (0.0-2.0); EOSINOPHILS # (AUTO) 0.2 K/uL (0-0.4); HEMATOCRIT 34.7 % (36-52); HEMOGLOBIN 11.7 g/dL (12.0-18.0); LYMPHOCYTES # (AUTO) 1.9 K/uL (2.0-11.5); MEAN CORPUSCULAR HEMOGLOBIN 29 pg (27-31); MEAN CORPUSCULAR HGB CONC 34 g/dL (33-37); MEAN CORPUSCULAR VOLUME 86 fL (80-94); MONOCYTES # (AUTO) 0.8 K/uL (0.8-1.0); NEUTROPHILS # (AUTO) 5.7 K/uL (1.8-7.7); NEUTROPHILS % (AUTO) 65.7 % (42.2-75.2); PLATELET COUNT (AUTO) 559 K/uL (140-450); RED BLOOD CELL COUNT(AUTO) 4.03 MIL/uL (4.20-6.10); RED CELL DISTRIBUTION WIDTH 13.3 % (11.6-13.7); WHITE BLOOD COUNT (AUTO) 8.8 K/uL (4.8-10.8)
[2017-01-30 08:00] VITALS: BP 96/56
[2017-01-30 08:12] LABS: PHOSPHORUS 4.2 mg/dL (2.5-4.9)
[2017-01-30] MEDS: ATORVASTATIN 20 MG TAB PO SCH (08:35)
[2017-01-30] MEDS: TAMSULOSIN 0.4 MG CAP PO SCH (08:36)
[2017-01-30] MEDS: LACTOBACILLUS RHAMNOSUS GG 1 EACH CAP PO SCH (08:36)
[2017-01-30] MEDS: MEROPENEM 1,000 MG in NACL 0.9% 100 ML IV SCH ×2 (08:37→20:44)
--- NOTE | 2017-01-30 08:45 | NUR ---
ADMINISTERED MORNING MEDS. PATIENT TOLERATED THEM WELL. PATIENT SITTING IN A CHAIR, BY THE WINDOW. NO COMPLAINTS. NO SIGNS OF DISTRESS. WILL CONTINUE TO MONITOR PATIENT.
[2017-01-30] MEDS ORDERED: COLCHICINE 0.6 MG TAB PO SCH ×2 (09:35→11:00)
[2017-01-30 10:32] LABS: ANION GAP 9.2 (8-16); CARBON DIOXIDE 30.1 mmol/L (21-32); CREATININE 1.3 mg/dL (0.7-1.3); POTASSIUM 4.3 mmol/L (3.5-5.1)
--- NOTE | 2017-01-30 11:40 | NUR ---
PT WANTED TO TAKE A SHOWER. D/C'D IV. WRAPPED ARM IN PLASTIC AND TAPE. GAVE PT EXTRA WASHCLOTHS, TOWELS, FRESH GOWN, DISPOSIBLE UNDERWEAR, FRESH SOCKS AND MORE BODYWASH/SHAMPOO. FAMILY IS HERE. WILL CONTINUE TO MONITOR PT.
[2017-01-30] MEDS: INSULIN LISPRO SLIDING SCALE 100 UNITS/ML VIAL SUBQ PRN ×2 (12:32→20:35)
--- NOTE | 2017-01-30 15:30 | NUR ---
PATIENT RESTING IN BED. TALKING TO FAMILY MEMBERS. NO SIGNS OF DISTRESS NOTED. DENIES PAIN. WILL CONTINUE TO MONITOR.
[2017-01-30 16:00] VITALS: BP 89/57
--- NOTE | 2017-01-30 19:17 | NUR ---
ENDORSED TO ADULT HIGH SCHOOL INSTRUCTOR RN. PATIENT IS IN STABLE CONDITION.
[2017-01-30] MEDS: COLCHICINE 0.6 MG TAB PO SCH (21:13)
--- NOTE | 2017-01-30 21:14 | NUR ---
DUE MEDICATION GIVEN, PATIENT TOLERATED WELL, NO S/S OF DISTRESS NOTED,WILL CONTINUE TO MONITOR.
[2017-01-31] VITALS: BP 91/55
--- NOTE | 2017-01-31 00:20 | NUR ---
VITAL SIGNS STABLE, RESPIRATION EVEN AND UNLABORED, CALL LIGHT WITHIN REACH, SAFETY MEASURE ENSURED, WILL CONTINUE TO MONITOR.
--- NOTE | 2017-01-31 02:20 | NUR ---
NO CHANGE IN CONDITION, PATIENT IS SLEEPING AT THIS TIME, RESPIRATION EVEN AND UNLABORED, CALL LIGHT WITHIN REACH, SAFETY MEASURE ENSURED, WILL CONTINUE TO MONITOR.
--- NOTE | 2017-01-31 04:17 | NUR ---
NO CHANGE IN CONDITION, PATIENT IS SLEEPING AT THIS TIME, RESPIRATION EVEN AND UNLABORED, CALL LIGHT WITHIN REACH, SAFETY MEASURE ENSURED, WILL CONTINUE TO MONITOR.
[2017-01-31] MEDS: BLOOD GLUCOSE MONITORING 1 DEV DEV FS SCH ×4 (06:30→21:43)
[2017-01-31] MEDS: glipiZIDE 5 MG TAB PO SCH ×2 (06:33→16:38)
--- NOTE | 2017-01-31 06:35 | NUR ---
DUE MEDICATION GIVEN, PATIENT TOLERATED WELL, NO S/S OF DISTRESS NOTED, WILL CONTINUE TO MONITOR.
[2017-01-31 07:02] LABS: BASOPHILS # (AUTO) 0.3 K/uL (0.00-0.22); BASOPHILS % (AUTO) 3.3 % (0.0-2.0); EOSINOPHILS # (AUTO) 0.2 K/uL (0-0.4); EOSINOPHILS % (AUTO) 2.2 % (0.0-4.0); HEMATOCRIT 34.5 % (36-52); HEMOGLOBIN 11.6 g/dL (12.0-18.0); LYMPHOCYTES # (AUTO) 2.1 K/uL (2.0-11.5); LYMPHOCYTES % (AUTO) 22.3 % (20.5-51.1); MEAN CORPUSCULAR HEMOGLOBIN 29 pg (27-31); MEAN CORPUSCULAR HGB CONC 34 g/dL (33-37); MEAN CORPUSCULAR VOLUME 85 fL (80-94); MONOCYTES # (AUTO) 0.9 K/uL (0.8-1.0); NEUTROPHILS % (AUTO) 63.2 % (42.2-75.2); PLATELET COUNT (AUTO) 602 K/uL (140-450); RED BLOOD CELL COUNT(AUTO) 4.05 MIL/uL (4.20-6.10); WHITE BLOOD COUNT (AUTO) 9.5 K/uL (4.8-10.8)
--- NOTE | 2017-01-31 07:15 | NUR ---
RECEIVED PATIENT REPORT AT BEDSIDE. PATIENT AWAKE, ALERT AND ORIENTED. PATIENT IS AMBULATORY. PATIENT ON ROOM AIR. NO S/S OF DISTRESS NOTED. PATIENT DENIES PAIN OR DISCOMFORT AT THIS TIME. BED LOWERED WITH CALL LIGHT WITHIN REACH. WILL CONTINUE TO MONITOR
--- NOTE | 2017-01-31 07:31 | NUR ---
ENDORSED PLAN OF CARE TO DAY RN, PATIENT RESTING IN BED, NO S/S OF DISTRESS, PATIENT IS IN STABLE CONDITION.
[2017-01-31 07:41] LABS: ANION GAP 10.8 (8-16); CARBON DIOXIDE 29.4 mmol/L (21-32); CREATININE 1.3 mg/dL (0.7-1.3); POTASSIUM 4.2 mmol/L (3.5-5.1)
[2017-01-31 07:43] LABS: PHOSPHORUS 4.5 mg/dL (2.5-4.9)
[2017-01-31 08:00] VITALS: BP 97/65
[2017-01-31] MEDS ORDERED: MEROPENEM 1,000 MG in NACL 0.9% 100 ML IV SCH (09:27)
[2017-01-31] MEDS: TAMSULOSIN 0.4 MG CAP PO SCH (09:35)
[2017-01-31] MEDS: ATORVASTATIN 20 MG TAB PO SCH (09:36)
[2017-01-31] MEDS: LACTOBACILLUS RHAMNOSUS GG 1 EACH CAP PO SCH (09:36)
[2017-01-31] MEDS: COLCHICINE 0.6 MG TAB PO SCH ×2 (09:36→21:43)
--- NOTE | 2017-01-31 14:38 | NUR ---
01/31/17 RD FOLLOW UP COMPLETED PLEASE REFER TO NUTRITION ASSESSMENT UNDER CARE ACTIVITY FOR ESTIMATED NUTRITIONAL NEEDS. 1. CONTINUE CCHO 60 GM DIET TOLERATED PER MD -DIET APPROPRIATE -PT MEETING 100% OF ESTIMATED NEEDS 2. RD TO FOLLOW-UP 5-7 DAYS, LOW RISK JONATHON DIAZ, RD
[2017-01-31 16:00] VITALS: BP 96/64
[2017-01-31] MEDS: INSULIN LISPRO SLIDING SCALE 100 UNITS/ML VIAL SUBQ PRN (17:40)
--- NOTE | 2017-01-31 19:11 | NUR ---
PATIENT REPORT GIVEN AT BEDSIDE. PATIENT ENDORSED IN STABLE CONDITION
--- NOTE | 2017-01-31 19:12 | NUR ---
RECD. RESTING IN BED, AWAKE, A/OX4. RESPIRATION EVEN AND UNLABORED. IV SALINE LOCK AT THE LEFT FOREARM G22, PATENT, INTACT. CONVERSING WITH FAMILY AT THE BEDSIDE. PLAN OF CARE FOR THE SHIFT DISCUSSED. VERBALIZED UNDERSTANDING. DENIES PAIN 0/10.
[2017-01-31 20:00] VITALS: BP 89/62
--- NOTE | 2017-01-31 20:00 | NUR ---
BP IN THE LOW SIDE, INFORMED DR. LAGUERRE. PATIENT ASYMPTOMATIC.
--- NOTE | 2017-01-31 20:00 | NUR ---
Patient's Plan of Care was discussed and reviewed with OPERATIONAL RISK CONSULTANT: KIRK
--- NOTE | 2017-01-31 21:43 | NUR ---
DUE PO MEDICATION AND SNACK FOR THE NIGHT GIVEN. AT 100%.
[2017-01-31] MEDS: MEROPENEM 1,000 MG in NACL 0.9% 100 ML IV SCH (21:52)
[2017-02-01] VITALS: BP 94/54
--- NOTE | 2017-02-01 | NUR ---
SLEEPING COMFORTABLY IN BED.
--- NOTE | 2017-02-01 06:00 | NUR ---
STILL SLEEPING COMFORTABLY IN BED. CONDITION REMAIN STABLE. NO COMPLAINT OF PAIN DURING SHIFT. WILL ENDORSE TO AM NURSE FOR CONTINUITY OF CARE.
[2017-02-01 06:06] LABS: BASOPHILS # (AUTO) 0.3 K/uL (0.00-0.22); BASOPHILS % (AUTO) 3.4 % (0.0-2.0); EOSINOPHILS # (AUTO) 0.3 K/uL (0-0.4); EOSINOPHILS % (AUTO) 3.3 % (0.0-4.0); HEMATOCRIT 34.1 % (36-52); HEMOGLOBIN 11.6 g/dL (12.0-18.0); LYMPHOCYTES # (AUTO) 2.8 K/uL (2.0-11.5); LYMPHOCYTES % (AUTO) 28.6 % (20.5-51.1); MEAN CORPUSCULAR HEMOGLOBIN 29 pg (27-31); MEAN CORPUSCULAR HGB CONC 34 g/dL (33-37); MEAN CORPUSCULAR VOLUME 85 fL (80-94); MONOCYTES # (AUTO) 0.6 K/uL (0.8-1.0); MONOCYTES % (AUTO) 6.6 % (1.7-9.3); NEUTROPHILS # (AUTO) 5.8 K/uL (1.8-7.7); NEUTROPHILS % (AUTO) 58.1 % (42.2-75.2); PLATELET COUNT (AUTO) 667 K/uL (140-450); RED BLOOD CELL COUNT(AUTO) 4.03 MIL/uL (4.20-6.10); RED CELL DISTRIBUTION WIDTH 12.7 % (11.6-13.7); WHITE BLOOD COUNT (AUTO) 9.8 K/uL (4.8-10.8)
[2017-02-01] MEDS: BLOOD GLUCOSE MONITORING 1 DEV DEV FS SCH ×2 (06:13→11:30)
[2017-02-01 06:48] LABS: ANION GAP 11.2 (8-16); CARBON DIOXIDE 29.3 mmol/L (21-32); CREATININE 1.3 mg/dL (0.7-1.3); POTASSIUM 4.5 mmol/L (3.5-5.1)
[2017-02-01] MEDS: glipiZIDE 5 MG TAB PO SCH (06:58)
--- NOTE | 2017-02-01 07:22 | NUR ---
ENDORSED TO JOHN DIAZ FOR CONTINUITY OF CARE.
--- NOTE | 2017-02-01 07:25 | NUR ---
REPORT RECEIVED FROM FINANCIAL REPORT SERVICE SALES AGENT, PT AWAKE ALERT, RESP EVN UNLAOBORED, SKIN WARM DRY COLOR WNL, PT DENIES APIN OR DISCOMFORT, PLAN OF CARE REVIEWED, PT VERBALIZED FULL UNDERSTANDING, CALL FRYE WITHIN REACH , SIDE RAILS UP, BED LOCKED IN LOW POSITION WILL CONTINUE TO MONTIOR.
[2017-02-01 08:00] VITALS: BP 98/66
[2017-02-01] MEDS: MEROPENEM 1,000 MG in NACL 0.9% 100 ML IV SCH (08:41)
[2017-02-01] MEDS: ATORVASTATIN 20 MG TAB PO SCH (08:42)
[2017-02-01] MEDS: COLCHICINE 0.6 MG TAB PO SCH (08:42)
[2017-02-01] MEDS: TAMSULOSIN 0.4 MG CAP PO SCH (08:42)
[2017-02-01] MEDS: LACTOBACILLUS RHAMNOSUS GG 1 EACH CAP PO SCH (08:42)
--- NOTE | 2017-02-01 08:49 | NUR ---
DUE MEDS GIVEN, PT JASON WELL, PT ATE 100% OF BREAKFAST TRAY WITHOUT PROBLEM, IV MEROPENEM STARTED SCHEDULED TO LEFT FA IV, SITE CLEAR, PT DENIES ANY PAIN OR DISCOMFORT, PT DENIES ANY IMMEDIATE NEEDS, WILL CONTINUE TO MONITOR,.
[2017-02-01] MEDS ORDERED: METF500T PO (11:04)
[2017-02-01] MEDS ORDERED: COL.6 PO (11:06)
[2017-02-01] MEDS ORDERED: ATOR20TA40 PO (11:08)
[2017-02-01] MEDS ORDERED: GLIP5TAB13 PO (11:08)
[2017-02-01] MEDS ORDERED: TAMS0.4C96 PO (11:08)
--- NOTE | 2017-02-01 12:03 | NUR ---
BLOOD SUGAR 154, PT REFUSES INSULIN.
--- NOTE | 2017-02-01 14:10 | NUR ---
PER TELEPHONE DRYWALL FINISHER, PT PREFERS TO HAVE HIS DAUGHTER TRANSLATE FOR DISCHARGE INSTRUCTION, DC INSTRUCTION AND RX INFO GIVEN AND EXPLAINED TO PT AND DAUGHTER, THEY VERBALIZED FULL UNDERSTANDING, IV DC'D, CATH TIP INTACT, BLEEDING CONTROLLED, DC HOME NOW, PT AMBULATES WITH STEADY GAIT, ESCORTED OUT BY 1ST PRESSMAN ON [employer].
== END 2017-02-01 14:10 | disposition home or self-care (01) | DRG 720 ==
LOC: MED 22:42 → EDBD 01-23 02:38 → MTU 01-23 02:38
PROVIDERS: ADMIT Student in an Organized Health Care Education/Training Program; ATTEND Student in an Organized Health Care Education/Training Program
DX: A41.9 Sepsis, unspecified organism (principal); N17.0 Acute kidney failure with tubular necrosis; E43 Unspecified severe protein-calorie malnutrition; D68.59 Other primary thrombophilia; E87.1 Hypo-osmolality and hyponatremia; E11.65 Type 2 diabetes mellitus with hyperglycemia; E83.42 Hypomagnesemia; N10 Acute pyelonephritis; E78.5 Hyperlipidemia, unspecified; E83.39 Other disorders of phosphorus metabolism; J98.11 Atelectasis; K57.90 Diverticulosis of intestine, part unspecified, without perforation or abscess without bleeding; K43.9 Ventral hernia without obstruction or gangrene; R65.20 Severe sepsis without septic shock; I10 Essential (primary) hypertension; M10.9 Gout, unspecified; Z68.28 Body mass index [BMI] 28.0-28.9, adult
CPT/HCPCS: 36415; 71010; 73630; 80048; 80053; 80305; 81001; 82140; 82150; 82948; 83036; 83605; 83690; 83735; 83880; 84100; 84439; 84443; 84484; 84550; 85025; 85610; 85730; 87040; 87081; 87086; 87186; 93005; 93925; 93970; 96361; 96365; 99291; G0482; J0696; J1815; J1885; J2185; J3475; J7030; J7060; Q0092